=== PATIENT | male | born 1970 | race African-American/Black ===

== ENCOUNTER 2017-11-24 09:26 | Inpatient (IN) | payer OTHER ==
[2017-11-24 11:14] VITALS: BMI 30.4
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
[2017-11-24] MEDS ORDERED: guaiFENesin/D-METHORPHAN HB 10 ML UNIT-DOSE CUPS PO PRN (12:59)
[2017-11-24] MEDS ORDERED: diazePAM 5 MG TABLET PO PRN (12:59)
[2017-11-24] MEDS ORDERED: MAGNESIUM CITRATE 300 ML BOTTLE PO PRN (12:59)
[2017-11-24] MEDS ORDERED: MAGNESIUM HYDROX 2400MG/30ML ORAL SUSPENSION 30 ML CUP PO PRN (12:59)
[2017-11-24] MEDS ORDERED: IBUPROFEN 400 MG TABLET (FP) PO PRN (12:59)
[2017-11-24] MEDS ORDERED: MAG HYDROX/AL HYDROX/SIMETH 30 ML UNIT-DOSE CUP PO PRN (12:59)
[2017-11-24] MEDS ORDERED: ACETAMINOPHEN 325 MG TABLET (FP) PO PRN (12:59)
[2017-11-24] MEDS ORDERED: MENTHOL/PHENOL 1 EACH UD MM PRN (12:59)
[2017-11-24] MEDS ORDERED: P-EPHED 60MG/TRIPROLIDI 2.5MG TABLET PO PRN (12:59)
[2017-11-24] MEDS ORDERED: LOPERAMIDE HCL 2 MG CAPSULE PO PRN (12:59)
[2017-11-24] MEDS ORDERED: hydrOXYzine PAMOATE 50 MG CAPSULE (FP) PO PRN (12:59)
[2017-11-24] MEDS ORDERED: NICOTINE POLACRILEX 2 MG GUM BUC PRN (12:59)
[2017-11-24] MEDS ORDERED: cloNIDine HCL 0.1 MG TABLET PO ONE (13:40)
[2017-11-24] MEDS ORDERED: diazePAM 5 MG TABLET PO ONE (13:40)
[2017-11-24] MEDS ORDERED: METHADONE HCL 10 MG TABLET (FOR DETOX USE ONLY) PO ONE ×2 (13:43→23:00)
[2017-11-24] MEDS: GABAPENTIN 300 MG CAPSULE (FP) PO SCH ×2 (14:02→22:35)
[2017-11-24] MEDS: NICOTINE 14 MG/24 HOURS TOPICAL PATCH TD SCH (14:03)
--- NOTE | 2017-11-24 14:47 | CONSULT ---
[facility] Psychiatric Consult - Data Date of interview: 11/24/17 Admission source: [facility] Identifying data: Pt. is a 47 year old male, , father of seven, and employed by the [employer]. This is one of multiple admissions for patient. Pt. admitted to for opiate, benzodiazepine, and alcohol dependence. Substance Abuse History: Following information confirmed by Mr. Gerardo: Smoking Cessation. Smoking history: Current every day smoker. Have you smoked in the past 12 months: Yes. Aproximately how many cigarettes per day: 7. Hx Chewing Tobacco Use: No. Initiated information on smoking cessation: Yes. 'Breaking Loose' booklet given: 11/24/17. - Substance & Tx. History. Hx Alcohol Use: Yes (BEER). Hx Substance Use: Yes (HEROIN/XANAX). Substance Use Type: Alcohol , Heroin, Tranquilizers. Hx Substance Use Treatment: Yes (LAST TX AT [facility] IN 2016--). - Substances Abused. Heroin. Route: Inhalation. Frequency: Daily. Amount used: 15 bags. Age of first use: 40. Date of Last Use: . Xanax. Route: Oral. Frequency: Daily. Amount used: 3 mg. Age of first use: 41. Date of Last Use: 11/23/17. Alcohol-beer. Route: Oral. Frequency: Daily. Amount used: 1 1/2-6 pks. Age of first use: 42. Date of Last Use: 11/23/17 Medical History: Hypertension, Diabetes Psychiatric History: Patient's first encounter with a psychiatrist was in 2000. Pt. reports seeing an outpatient psychiatrist from [id number] and was diagnosed with schizoaffective disorder, MDD, and anxiety. Pt. reports approximately seven psychiatric hospitalizations with the most recent hospitalization occuring at [place] [facility] in 2015. Pt. has also been hospitalized at [facility] and [facility]. Reports taking seroquel 100mg PO BID and trazodone 100mg qhs but has not taken medications in two months. Pt. requesting to restart seroquel. Pt. denies h/o suicide attempt. Pt. denies suicidal and homicidal ideation. Physical/Sexual Abuse/Trauma History: Denies. Additional Comment: Urine Drug Screen Results: OPI-Opiates, BZO-Benzodiazepines , MTD-Methadone, OXY-Oxycodone Mental Status Exam - Mental Status Exam Alert and Oriented to: Time, Place, Person Cognitive Function: Good Patient Appearance: Well Groomed Mood: Euthymic Affect: Mood Congruent Patient Behavior: Cooperative Speech Pattern: Appropriate Voice Loudness: Moderately Soft/Quiet Thought Process: Goal Oriented Thought Disorder: Not Present Hallucinations: Denies Suicidal Ideation: Denies Homicidal Ideation: Denies Insight/Judgement: Poor Sleep: Poorly Appetite: Fair Muscle strength/Tone: Normal Gait/Station: Normal Psychiatric Findings - Problem List ([place] 1, 2,3) (1) Alcohol dependence with uncomplicated withdrawal Current Visit: Yes Status: Acute (2) Nicotine dependence Current Visit: Yes Status: Chronic Qualifiers: Nicotine product type: cigarettes Substance use status: in withdrawal Qualified Code(s): F17.213 - Nicotine dependence, cigarettes, with withdrawal (3) Opioid dependence Current Visit: Yes Status: Acute (4) Opioid dependence with withdrawal Current Visit: Yes Status: Acute (5) Schizoaffective disorder Current Visit: Yes Status: Chronic Comment: Self reports. (6) Sedative hypnotic or anxiolytic dependence Current Visit: Yes Status: Acute - Initial Treatment Plan Initial Treatment Plan: Psychoeducation provided. Detoxification in progress. Seroquel 50mg BID ordered (will titrate to Seroquel 100mg bid if current medication regime is tolerated well). Benefits and side effects discussed. Verbal Consent given. Will continue to monitor.
[2017-11-24 16:49] LABS: HEMATOCRIT 42.3 % (35.4-49); HEMOGLOBIN 13.8 GM/dL (11.7-16.9); MCH 28.8 pg (25.7-33.7); MCHC 32.7 g/dl (32.0-35.9); MEAN CELL VOLUME 88.2 fl (80-96); MEAN PLT VOLUME 9.3 fl (7.5-11.1); PLATELET COUNT 240 K/MM3 (134-434); RDW 12.7 % (11.9-15.9); WHITE BLOOD COUNT 6.7 K/mm3 (4.0-10.0)
[2017-11-24 16:58] LABS: URINE APPEARANCE CLOUDY; URINE BILIRUBIN NEGATIVE (NEGATIVE); URINE BLOOD NEGATIVE (NEGATIVE); URINE COLOR AMBER; URINE GLUCOSE (UA) NEGATIVE (NEGATIVE); URINE KETONE TRACE (NEGATIVE); URINE LEUK ESTERASE NEGATIVE (NEGATIVE); URINE NITRITE NEGATIVE (NEGATIVE); URINE UROBILINOGEN NEGATIVE mg/dL (0.2-1.0)
[2017-11-24 17:02] LABS: URINE PROTEIN 1+ (NEGATIVE)
[2017-11-24 17:05] LABS: EPI CELLS RARE /HPF (FEW); URINE MUCUS MANY
--- NOTE | 2017-11-24 17:30 | EKG ---
Test Reason : Blood Pressure : / mmHG Vent. Rate : 053 BPM Atrial Rate : 053 BPM P-R Int : 210 ms QRS Dur : 104 ms QT Int : 438 ms P-R-T Axes : 029 037 020 degrees QTc Int : 410 ms SINUS BRADYCARDIA WITH 1ST DEGREE A-V BLOCK MINIMAL VOLTAGE CRITERIA FOR LVH, MAY BE NORMAL VARIANT BORDERLINE ECG NO PREVIOUS ECGS AVAILABLE Confirmed by Tomy Kelley ([id number]) on 11/24/2017 5:30:37 PM Referred By: Confirmed By:Tomy Kelley
[2017-11-24 17:47] LABS: ALBUMIN 3.8 g/dl (3.4-5.0); ANION GAP 7 (8-16); CALCIUM 8.8 mg/dL (8.5-10.1); CHLORIDE 106 mmol/L (98-107); CO2 26 mmol/L (21-32); GLUCOSE,RANDOM 86 mg/dL (74-106); POTASSIUM 4.2 mmol/L (3.5-5.1); SODIUM 139 mmol/L (136-145)
[2017-11-24 18:47] LABS: BILIRUBIN,TOTAL 0.7 mg/dL (0.2-1.0); CREATININE 0.8 mg/dL (0.7-1.3); TOT PROT 7.2 g/dl (6.4-8.2)
[2017-11-24 18:48] LABS: ALK PHOS 94 U/L (45-117); SGOT/AST 10 U/L (15-37); SGPT/ALT 23 U/L (12-78)
[2017-11-24 20:06] LABS: BLOOD UREA NITROGEN 12 mg/dL (7-18)
[2017-11-24] MEDS ORDERED: PATIENT'S OWN MEDICATION (NON-FORMULARY) (Clonidine Hcl [Catapres] 0.2 MG) PO SCH (22:00)
[2017-11-24] MEDS: diazePAM 5 MG TABLET PO SCH (22:35)
[2017-11-24] MEDS: QUEtiapine FUMARATE 50 MG TABLET PO SCH (22:35)
[2017-11-24] MEDS: THIAMINE HCL 100 MG TABLET (FP) PO SCH (22:35)
[2017-11-24] MEDS: cloNIDine HCL 0.1 MG TABLET PO SCH (22:35)
[2017-11-24] MEDS: TOLNAFTATE 1% CREAM 15 GM TUBE TP SCH (22:38)
[2017-11-25] MEDS: GABAPENTIN 300 MG CAPSULE (FP) PO SCH ×3 (06:19→23:01)
[2017-11-25] MEDS: diazePAM 5 MG TABLET PO SCH ×3 (06:19→23:00)
[2017-11-25] MEDS ORDERED: METHADONE HCL 10 MG TABLET (FOR DETOX USE ONLY) PO SCH (10:00)
[2017-11-25] MEDS: QUEtiapine FUMARATE 50 MG TABLET PO SCH (11:03)
[2017-11-25] MEDS: NICOTINE 14 MG/24 HOURS TOPICAL PATCH TD SCH (11:03)
[2017-11-25] MEDS: cloNIDine HCL 0.1 MG TABLET PO SCH ×2 (11:03→23:00)
[2017-11-25] MEDS: TOLNAFTATE 1% CREAM 15 GM TUBE TP SCH ×2 (11:03→23:01)
[2017-11-25] MEDS: PRENATAL VITAMINS W/ FOLIC ACID TABLET (FP) PO SCH (11:03)
--- NOTE | 2017-11-25 11:32 | PN ---
[facility] CIWA - CIWA Score Nausea/Vomitin Muscle Tremors: 3 Anxiety: 3 Agitation: 2 Paroxysmal Sweats: 1-Minimal Palms Moist Orientation: 0-Oriented Tacttile Disturbances: 1-Very Mild Itch/Numbness Auditory Disturbances: 1-Very Mild Visual Disturbances: 0-None Headache: 2-Mild CIWA-Ar Total Score: 16 [facility] COWS - Scale Resting Pulse: 0= [place] 80 or Below Sweatin= Chills/Flushing Restless Observation: 3= Extraneous Movement Pupil Size: 1= Pupils >than Normal Bone or Joint Aches: 2= Severe Diffuse Aches Runny Nose/ Eye Tearin= Runny Nose/Eyes GI Upset > 30mins: 2= Nausea/Diarrhea Tremor Observation of Outstretched Hands: 2= Slight Tremor Visible Yawning Observation: 1= 1-2x During Session Anxiety or Irritability: 2=Irritable/Anxious Goose Flesh Skin: 0=Smooth Skin COWS Score: 16 [facility] Progress Note (SOAP) Subjective: ALERT,IRRITABLE,ANXIOUS,INTERRUPTED SLEEP,TREMOR,PAIN IN THE BODY AND BACK Objective: 11/25/17 11:29 Vital Signs Temperature 98.1 F 11/25/17 10:00 Pulse Rate 60 11/25/17 10:00 Respiratory Rate 20 11/25/17 10:00 Blood Pressure 142/77 11/25/17 10:00 O2 Sat by Pulse Oximetry (%) EKG 11/25/17 11:33 EKG SINUS BRADYCARDIA 1SE DEGREE AV BLOCK LVH NO CHEST PAIN,NO SOB,NO DIZZINESS REPEAT EKG PENDING Laboratory Last Values WBC 6.7 K/mm3 (4.0-10.0) 11/24/17 13:00 RBC 4.80 M/mm3 (4.00-5.60) 11/24/17 13:00 Hgb 13.8 GM/dL (11.7-16.9) 11/24/17 13:00 Hct 42.3 % (35.4-49) 11/24/17 13:00 MCV 88.2 fl (80-96) 11/24/17 13:00 MCH 28.8 pg (25.7-33.7) 11/24/17 13:00 MCHC 32.7 g/dl (32.0-35.9) 11/24/17 13:00 RDW 12.7 % (11.9-15.9) 11/24/17 13:00 Plt Count 240 K/MM3 (134-434) 11/24/17 13:00 MPV 9.3 fl (7.5-11.1) 11/24/17 13:00 Sodium 139 mmol/L (136-145) 11/24/17 13:00 Potassium 4.2 mmol/L (3.5-5.1) 11/24/17 13:00 Chloride 106 mmol/L (98-107) 11/24/17 13:00 Carbon Dioxide 26 mmol/L (21-32) 11/24/17 13:00 Anion Gap 7 (8-16) L 11/24/17 13:00 BUN 12 mg/dL (7-18) 11/24/17 13:00 Creatinine 0.8 mg/dL (0.7-1.3) 11/24/17 13:00 Creat Clearance w eGFR > 60 (>60) 11/24/17 13:00 POC Glucometer 83 UNITS (80-120) 11/25/17 06:19 Random Glucose 86 mg/dL (74-106) 11/24/17 13:00 Calcium 8.8 mg/dL (8.5-10.1) 11/24/17 13:00 Total Bilirubin 0.7 mg/dL (0.2-1.0) 11/24/17 13:00 AST 10 U/L (15-37) L D 11/24/17 13:00 ALT 23 U/L (12-78) 11/24/17 13:00 Alkaline Phosphatase 94 U/L (45-117) 11/24/17 13:00 Total Protein 7.2 g/dl (6.4-8.2) 11/24/17 13:00 Albumin 3.8 g/dl (3.4-5.0) 11/24/17 13:00 Urine Color Jign[place] 11/24/17 15:00 Urine Appearance Cloudy 11/24/17 15:00 Urine pH 5.0 (5.0-8.0) 11/24/17 15:00 Ur Specific [place] 1.030 (1.001-1.035) 11/24/17 15:00 Urine Protein 1+ (NEGATIVE) H 11/24/17 15:00 Urine Glucose (UA) Negative (NEGATIVE) 11/24/17 15:00 Urine Ketones Trace (NEGATIVE) H 11/24/17 15:00 Urine Blood Negative (NEGATIVE) 11/24/17 15:00 Urine Nitrite Negative (NEGATIVE) 11/24/17 15:00 Urine Bilirubin Negative (NEGATIVE) 11/24/17 15:00 Urine Urobilinogen Negative mg/dL (0.2-1.0) 11/24/17 15:00 Ur Leukocyte Esterase Negative (NEGATIVE) 11/24/17 15:00 Urine WBC (Auto) 1 /hpf (3-5) 11/24/17 15:00 Urine RBC (Auto) 2 /hpf (0-3) 11/24/17 15:00 Ur Epithelial Cells Rare /HPF (FEW) 11/24/17 15:00 Urine Mucus Many 11/24/17 15:00 11/25/17 11:35 LABS PENDING Assessment: 11/25/17 11:35 WITHDRAWAL SYMPTOM Plan: CONTINUE DETOX
--- NOTE | 2017-11-25 15:59 | PN ---
[facility] Progress Note Note: Psychiatric Nurse Practitioner: Pt. able to tolerate seroquel 50mg BID. No complaints of dizziness or oversedation. Pt. agreeable to increasing seroquel to 100mg BID which was discussed during initial psychiatric consultation. Benefits and side effects discussed. Verbal consent given. Will continue to monitor.
[2017-11-25] MEDS: QUEtiapine FUMARATE 100 MG TABLET (FP) PO SCH (23:01)
[2017-11-25] MEDS: THIAMINE HCL 100 MG TABLET (FP) PO SCH (23:01)
[2017-11-26] MEDS: GABAPENTIN 300 MG CAPSULE (FP) PO SCH ×4 (06:09→22:27)
[2017-11-26] MEDS: METHADONE HCL 5 MG TABLET (FOR DETOX USE ONLY) PO SCH (10:38)
[2017-11-26] MEDS: cloNIDine HCL 0.1 MG TABLET PO SCH ×3 (10:39→22:30)
[2017-11-26] MEDS: NICOTINE 14 MG/24 HOURS TOPICAL PATCH TD SCH (10:39)
[2017-11-26] MEDS: TOLNAFTATE 1% CREAM 15 GM TUBE TP SCH ×2 (10:39→22:30)
[2017-11-26] MEDS: QUEtiapine FUMARATE 100 MG TABLET (FP) PO SCH ×2 (10:39→22:27)
[2017-11-26] MEDS: diazePAM 5 MG TABLET PO SCH ×2 (10:39→22:27)
[2017-11-26] MEDS: PRENATAL VITAMINS W/ FOLIC ACID TABLET (FP) PO SCH (10:39)
--- NOTE | 2017-11-26 11:35 | PN ---
[facility] CIWA - CIWA Score Nausea/Vomitin Muscle Tremors: 3 Anxiety: 3 Agitation: 3 Paroxysmal Sweats: 1-Minimal Palms Moist Orientation: 0-Oriented Tacttile Disturbances: 1-Very Mild Itch/Numbness Auditory Disturbances: 1-Very Mild Visual Disturbances: 0-None Headache: 2-Mild CIWA-Ar Total Score: 17 [facility] COWS - Scale Resting Pulse: 0= [place] 80 or Below Sweatin= Chills/Flushing Restless Observation: 3= Extraneous Movement Pupil Size: 1= Pupils >than Normal Bone or Joint Aches: 2= Severe Diffuse Aches Runny Nose/ Eye Tearin= Runny Nose/Eyes GI Upset > 30mins: 3= Vomiting/Diarrhea Tremor Observation of Outstretched Hands: 2= Slight Tremor Visible Yawning Observation: 1= 1-2x During Session Anxiety or Irritability: 2=Irritable/Anxious Goose Flesh Skin: 0=Smooth Skin COWS Score: 17 [facility] Progress Note (SOAP) Subjective: ALERT,IRRITABLE,ANXIOUS,INTERRUPTED SLEEP,PAIN IN THE BODY AND BACK Objective: 11/26/17 11:34 Vital Signs Temperature 98.2 F 11/26/17 10:11 Pulse Rate 62 11/26/17 10:11 Respiratory Rate 16 11/26/17 10:11 Blood Pressure 121/70 11/26/17 10:11 O2 Sat by Pulse Oximetry (%) Assessment: 11/26/17 11:34 WITHDRAWAL SYMPTOM Plan: CONTINUE DETOX
--- NOTE | 2017-11-26 12:16 | EKG ---
Test Reason : Blood Pressure : / mmHG Vent. Rate : 059 BPM Atrial Rate : 059 BPM P-R Int : 218 ms QRS Dur : 098 ms QT Int : 414 ms P-R-T Axes : 037 011 -03 degrees QTc Int : 409 ms SINUS BRADYCARDIA WITH 1ST DEGREE A-V BLOCK OTHERWISE NORMAL ECG WHEN COMPARED WITH ECG OF 24-NOV-2017 14:15, NO SIGNIFICANT CHANGE WAS FOUND Confirmed by BHASKAR BARRAZA, CALLI ([id number]) on 11/26/2017 12:16:07 PM Referred By: Confirmed By:CALLI MURO MD
[2017-11-26] MEDS: MINERAL OIL/PETROLAT/WATER TOPICAL CREAM 113 GM JAR TP SCH ×2 (12:30→22:30)
[2017-11-26] MEDS: THIAMINE HCL 100 MG TABLET (FP) PO SCH ×2 (22:26→23:05)
[2017-11-27] MEDS: GABAPENTIN 300 MG CAPSULE (FP) PO SCH ×3 (05:37→22:15)
[2017-11-27] MEDS: MINERAL OIL/PETROLAT/WATER TOPICAL CREAM 113 GM JAR TP SCH ×2 (10:50→22:38)
[2017-11-27] MEDS: TOLNAFTATE 1% CREAM 15 GM TUBE TP SCH ×2 (10:50→22:38)
[2017-11-27] MEDS: QUEtiapine FUMARATE 100 MG TABLET (FP) PO SCH ×2 (10:50→22:15)
[2017-11-27] MEDS: cloNIDine HCL 0.1 MG TABLET PO SCH ×2 (10:55→22:38)
[2017-11-27] MEDS: diazePAM 5 MG TABLET PO SCH ×2 (10:56→22:14)
[2017-11-27] MEDS: NICOTINE 14 MG/24 HOURS TOPICAL PATCH TD SCH (10:56)
[2017-11-27] MEDS: PRENATAL VITAMINS W/ FOLIC ACID TABLET (FP) PO SCH (10:56)
[2017-11-27] MEDS: METHADONE HCL 5 MG TABLET (FOR DETOX USE ONLY) PO SCH (10:56)
--- NOTE | 2017-11-27 11:53 | PN ---
[facility] Progress Note (SOAP) Subjective: ALERT,IRRITABLE,ANXIOUS,INTERRUPTED SLEEP,TREMOR Objective: 11/27/17 11:52 Vital Signs Temperature 97.9 F 11/27/17 11:37 Pulse Rate 63 11/27/17 11:37 Respiratory Rate 18 11/27/17 11:37 Blood Pressure 135/66 11/27/17 11:37 O2 Sat by Pulse Oximetry (%) [facility] 92 Assessment: 11/27/17 11:52 WITHDRAWAL SYMPTOM Plan: CONTINUE DETOX
[2017-11-27] MEDS: THIAMINE HCL 100 MG TABLET (FP) PO SCH (22:14)
[2017-11-28] MEDS: GABAPENTIN 300 MG CAPSULE (FP) PO SCH ×3 (06:20→22:23)
[2017-11-28] MEDS ORDERED: diazePAM 5 MG TABLET PO SCH (10:00)
[2017-11-28] MEDS ORDERED: METHADONE HCL 10 MG TABLET (FOR DETOX USE ONLY) PO SCH (10:00)
[2017-11-28] MEDS: MINERAL OIL/PETROLAT/WATER TOPICAL CREAM 113 GM JAR TP SCH ×2 (10:50→22:24)
[2017-11-28] MEDS: PRENATAL VITAMINS W/ FOLIC ACID TABLET (FP) PO SCH (11:12)
[2017-11-28] MEDS: cloNIDine HCL 0.1 MG TABLET PO SCH ×2 (11:12→22:23)
[2017-11-28] MEDS: NICOTINE 14 MG/24 HOURS TOPICAL PATCH TD SCH (11:13)
[2017-11-28] MEDS: QUEtiapine FUMARATE 100 MG TABLET (FP) PO SCH ×2 (11:13→22:23)
[2017-11-28] MEDS: TOLNAFTATE 1% CREAM 15 GM TUBE TP SCH ×2 (11:15→22:24)
--- NOTE | 2017-11-28 14:13 | PN ---
[facility] Progress Note (SOAP) Subjective: shakes anxious Objective: 11/28/17 14:12 sitting in day room slight tremors with arms extended no acute distress Vital Signs Temperature 98.4 F 11/28/17 10:00 Pulse Rate 64 11/28/17 10:00 Respiratory Rate 20 11/28/17 10:00 Blood Pressure 128/66 11/28/17 10:00 O2 Sat by Pulse Oximetry (%) Assessment: 11/28/17 14:13 withdrawal sx Plan: continue detox d/c tomorrow
[2017-11-28] MEDS: THIAMINE HCL 100 MG TABLET (FP) PO SCH (22:23)
[2017-11-29] MEDS: GABAPENTIN 300 MG CAPSULE (FP) PO SCH (05:51)
[2017-11-29] MEDS ORDERED: METHADONE HCL 5 MG TABLET (FOR DETOX USE ONLY) PO SCH (06:00)
--- NOTE | 2017-11-29 08:56 | DS ---
[facility] Detox Discharge Summary Admission Date: 11/24/17 Discharge Date: 11/29/17 - History Present History: Alcohol Dependence, Opioid Dependence - Physical Exam Results Vital Signs: Vital Signs Temperature 97.9 F 11/29/17 06:00 Pulse Rate 53 L 11/29/17 06:00 Respiratory Rate 18 11/29/17 06:00 Blood Pressure 122/72 11/29/17 06:00 O2 Sat by Pulse Oximetry (%) Pertinent Admission Physical Exam Findings: withdrawal sx Vital Signs Temperature 97.9 F 11/29/17 06:00 Pulse Rate 53 L 11/29/17 06:00 Respiratory Rate 18 11/29/17 06:00 Blood Pressure 122/72 11/29/17 06:00 O2 Sat by Pulse Oximetry (%) Laboratory Last Values WBC 6.7 K/mm3 (4.0-10.0) 11/24/17 13:00 RBC 4.80 M/mm3 (4.00-5.60) 11/24/17 13:00 Hgb 13.8 GM/dL (11.7-16.9) 11/24/17 13:00 Hct 42.3 % (35.4-49) 11/24/17 13:00 MCV 88.2 fl (80-96) 11/24/17 13:00 MCH 28.8 pg (25.7-33.7) 11/24/17 13:00 MCHC 32.7 g/dl (32.0-35.9) 11/24/17 13:00 RDW 12.7 % (11.9-15.9) 11/24/17 13:00 Plt Count 240 K/MM3 (134-434) 11/24/17 13:00 MPV 9.3 fl (7.5-11.1) 11/24/17 13:00 Sodium 139 mmol/L (136-145) 11/24/17 13:00 Potassium 4.2 mmol/L (3.5-5.1) 11/24/17 13:00 Chloride 106 mmol/L (98-107) 11/24/17 13:00 Carbon Dioxide 26 mmol/L (21-32) 11/24/17 13:00 Anion Gap 7 (8-16) L 11/24/17 13:00 BUN 12 mg/dL (7-18) 11/24/17 13:00 Creatinine 0.8 mg/dL (0.7-1.3) 11/24/17 13:00 Creat Clearance w eGFR > 60 (>60) 11/24/17 13:00 POC Glucometer 87 UNITS (80-120) 11/29/17 05:54 Random Glucose 86 mg/dL (74-106) 11/24/17 13:00 Calcium 8.8 mg/dL (8.5-10.1) 11/24/17 13:00 Total Bilirubin 0.7 mg/dL (0.2-1.0) 11/24/17 13:00 AST 10 U/L (15-37) L D 11/24/17 13:00 ALT 23 U/L (12-78) 11/24/17 13:00 Alkaline Phosphatase 94 U/L (45-117) 11/24/17 13:00 Total Protein 7.2 g/dl (6.4-8.2) 11/24/17 13:00 Albumin 3.8 g/dl (3.4-5.0) 11/24/17 13:00 Urine Color Jigna 11/24/17 15:00 Urine Appearance Cloudy 11/24/17 15:00 Urine pH 5.0 (5.0-8.0) 11/24/17 15:00 Ur Specific [place] 1.030 (1.001-1.035) 11/24/17 15:00 Urine Protein 1+ (NEGATIVE) H 11/24/17 15:00 Urine Glucose (UA) Negative (NEGATIVE) 11/24/17 15:00 Urine Ketones Trace (NEGATIVE) H 11/24/17 15:00 Urine Blood Negative (NEGATIVE) 11/24/17 15:00 Urine Nitrite Negative (NEGATIVE) 11/24/17 15:00 Urine Bilirubin Negative (NEGATIVE) 11/24/17 15:00 Urine Urobilinogen Negative mg/dL (0.2-1.0) 11/24/17 15:00 Ur Leukocyte Esterase Negative (NEGATIVE) 11/24/17 15:00 Urine WBC (Auto) 1 /hpf (3-5) 11/24/17 15:00 Urine RBC (Auto) 2 /hpf (0-3) 11/24/17 15:00 Ur Epithelial Cells Rare /HPF (FEW) 11/24/17 15:00 Urine Mucus Many 11/24/17 15:00 RPR Titer Nonreactive (NONREACTIVE) 11/24/17 13:00 lab noted - Treatment Hospital Course: Detox Protocol Followed, Detoxed Safely, Responded well, Discharged Condition Good, Rehab Referral Accepted Patient has Accepted a Rehab Referral to: as per counselor arranged - Medication Discharge Medications: Ambulatory Orders Clonidine HCl [Catapres] 0.2 mg PO BID 11/24/17 Trazodone HCl 50 mg PO HS 11/24/17 Quetiapine Fumarate [Seroquel] 100 tab PO BID #60 tablet 11/27/17 Gabapentin [Neurontin -] 300 mg PO TID #42 capsule 11/29/17 - Diagnosis (1) Alcohol dependence with uncomplicated withdrawal Current Visit: Yes Status: Acute (2) Opioid dependence with withdrawal Current Visit: Yes Status: Acute - AMA Did Patient Leave Against Medical Advice: No
[2017-11-29 10:05] VITALS: BP 110/61; PULSE 68; TEMP 98.2
== END 2017-11-29 08:53 | disposition home or self-care (01) | DRG 773 ==
LOC: YASAS 09:26 → Y6N 12:44
PROVIDERS: ADMIT Internal Medicine; ATTEND Internal Medicine
PROC: HZ2ZZZZ Detoxification Services for Substance Abuse Treatment (ICD-10-PCS; principal; 2017-11-24)
DX: F11.23 Opioid dependence with withdrawal (principal); F10.230 Alcohol dependence with withdrawal, uncomplicated; F13.230 Sedative, hypnotic or anxiolytic dependence with withdrawal, uncomplicated; F17.213 Nicotine dependence, cigarettes, with withdrawal; F25.9 Schizoaffective disorder, unspecified; I44.0 Atrioventricular block, first degree; I25.2 Old myocardial infarction; I15.9 Secondary hypertension, unspecified; E11.9 Type 2 diabetes mellitus without complications; R00.1 Bradycardia, unspecified; G47.00 Insomnia, unspecified; Z91.013 Allergy to seafood; Z91.018 Allergy to other foods; Z88.0 Allergy status to penicillin
CPT/HCPCS: 36415; 71046-TC-FY; 80053; 81003; 81015; 82962; 85027; 86593; 93005; 93010; J0735

== ENCOUNTER 2018-01-23 11:37 | Inpatient (IN) | payer OTHER ==
[2018-01-23 12:52] VITALS: BMI 30.4
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
[2018-01-23] MEDS ORDERED: IBUPROFEN 400 MG TABLET (FP) PO PRN (13:26)
[2018-01-23] MEDS ORDERED: hydrOXYzine PAMOATE 25 MG CAPSULE (FP) PO PRN (13:26)
[2018-01-23] MEDS ORDERED: ACETAMINOPHEN 325 MG TABLET (FP) PO PRN (13:26)
[2018-01-23] MEDS ORDERED: LOPERAMIDE HCL 2 MG CAPSULE PO PRN (13:26)
[2018-01-23] MEDS ORDERED: chlordiazePOXIDE HCL 25 MG CAPSULE PO PRN (13:26)
[2018-01-23] MEDS ORDERED: guaiFENesin/D-METHORPHAN HB 10 ML UNIT-DOSE CUPS PO PRN (13:26)
[2018-01-23] MEDS ORDERED: MAGNESIUM CITRATE 300 ML BOTTLE PO PRN (13:26)
[2018-01-23] MEDS ORDERED: MAGNESIUM HYDROX 2400MG/30ML ORAL SUSPENSION 30 ML CUP PO PRN (13:26)
[2018-01-23] MEDS ORDERED: P-EPHED 60MG/TRIPROLIDI 2.5MG TABLET PO PRN (13:26)
[2018-01-23] MEDS ORDERED: MAG HYDROX/AL HYDROX/SIMETH 30 ML UNIT-DOSE CUP PO PRN (14:29)
[2018-01-23] MEDS ORDERED: METHADONE HCL 10 MG TABLET (FOR DETOX USE ONLY) PO ONE ×2 (14:30→23:00)
[2018-01-23] MEDS ORDERED: chlordiazePOXIDE HCL 25 MG CAPSULE PO ONE (14:30)
[2018-01-23] MEDS ORDERED: MENTHOL/PHENOL 1 EACH UD MM PRN (14:30)
[2018-01-23] MEDS ORDERED: NICOTINE POLACRILEX 4 MG GUM BUC PRN (14:35)
[2018-01-23] MEDS: CHLORHEXIDINE GLUCONATE 0.12% 15ML CUP MM SCH ×2 (15:57→22:38)
[2018-01-23 17:38] LABS: URINE APPEARANCE CLEAR; URINE BILIRUBIN NEGATIVE (<2.0 mg/dL); URINE BLOOD NEGATIVE (NEGATIVE); URINE COLOR LTYELLOW; URINE GLUCOSE (UA) NEGATIVE (NEGATIVE); URINE KETONE NEGATIVE (NEGATIVE); URINE LEUK ESTERASE NEGATIVE (NEGATIVE); URINE NITRITE NEGATIVE (NEGATIVE); URINE PROTEIN NEGATIVE (NEGATIVE); URINE UROBILINOGEN NEGATIVE mg/dL (0.2-1.0)
[2018-01-23] MEDS: chlordiazePOXIDE HCL 25 MG CAPSULE PO SCH ×2 (18:08→22:36)
[2018-01-23] MEDS ORDERED: MELATONIN 5 MG TABLETS PO PRN (22:00)
[2018-01-23] MEDS: THIAMINE HCL 100 MG TABLET (FP) PO SCH (22:36)
[2018-01-24] MEDS: chlordiazePOXIDE HCL 25 MG CAPSULE PO SCH ×4 (06:54→22:51)
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
[2018-01-24] MEDS ORDERED: METHADONE HCL 10 MG TABLET (FOR DETOX USE ONLY) PO SCH (10:00)
[2018-01-24 10:01] LABS: ALBUMIN 3.4 g/dl (3.4-5.0); ALK PHOS 97 U/L (45-117); ANION GAP 6 (8-16); BILIRUBIN,TOTAL 1.2 mg/dL (0.2-1.0); BLOOD UREA NITROGEN 12 mg/dL (7-18); CALCIUM 8.7 mg/dL (8.5-10.1); CHLORIDE 107 mmol/L (98-107); CO2 27 mmol/L (21-32); CREATININE 0.8 mg/dL (0.7-1.3); GLUCOSE,RANDOM 86 mg/dL (74-106); HEMATOCRIT 39.4 % (35.4-49); HEMOGLOBIN 12.9 GM/dL (11.7-16.9); MCHC 32.7 g/dl (32.0-35.9); MEAN CELL VOLUME 88.6 fl (80-96); MEAN PLT VOLUME 9.1 fl (7.5-11.1); PLATELET COUNT 219 K/MM3 (134-434); POTASSIUM 4.1 mmol/L (3.5-5.1); RBC 4.45 M/mm3 (4.00-5.60); RDW 13.1 % (11.9-15.9); SGOT/AST 16 U/L (15-37); SGPT/ALT 20 U/L (12-78); SODIUM 140 mmol/L (136-145); TOT PROT 6.5 g/dl (6.4-8.2); WHITE BLOOD COUNT 5.8 K/mm3 (4.0-10.0)
[2018-01-24] MEDS: PRENATAL VITAMINS W/ FOLIC ACID TABLET (FP) PO SCH (10:34)
[2018-01-24] MEDS: CHLORHEXIDINE GLUCONATE 0.12% 15ML CUP MM SCH ×2 (10:35→22:51)
--- NOTE | 2018-01-24 14:46 | EKG ---
Test Reason : Blood Pressure : / mmHG Vent. Rate : 072 BPM Atrial Rate : 072 BPM P-R Int : 214 ms QRS Dur : 104 ms QT Int : 398 ms P-R-T Axes : 055 019 015 degrees QTc Int : 435 ms SINUS RHYTHM WITH 1ST DEGREE A-V BLOCK POSSIBLE LEFT ATRIAL ENLARGEMENT BORDERLINE ECG WHEN COMPARED WITH ECG OF 25-NOV-2017 11:38, NO SIGNIFICANT CHANGE WAS FOUND Confirmed by KARLA BARRAZA, LIDIA ([id number]) on 01/24/2018 2:46:00 PM Referred By: Confirmed By:LIDIA ACOSTA MD
--- NOTE | 2018-01-24 16:05 | PN ---
S CIWA - CIWA Score Nausea/Vomitin Muscle Tremors: 4-Moderate,w/Arms Extend Anxiety: 4-Mod. Anxious/Guarded Agitation: 4-Moderately Restless Paroxysmal Sweats: 3 Orientation: 0-Oriented Tacttile Disturbances: 1-Very Mild Itch/Numbness Auditory Disturbances: 0-None Visual Disturbances: 0-None Headache: 1-Very Mild CIWA-Ar Total Score: 20 BHS COWS - Scale Resting Pulse: 0= [place] 80 or Below Sweatin=Flushed/Facial Moisture Restless Observation: 3= Extraneous Movement Pupil Size: 0= Normal to Room Light Bone or Joint Aches: 2= Severe Diffuse Aches Runny Nose/ Eye Tearin= Runny Nose/Eyes GI Upset > 30mins: 2= Nausea/Diarrhea Tremor Observation of Outstretched Hands: 2= Slight Tremor Visible Yawning Observation: 1= 1-2x During Session Anxiety or Irritability: 2=Irritable/Anxious Goose Flesh Skin: 0=Smooth Skin COWS Score: 16 S Progress Note (SOAP) Subjective: Sweating, interrupted sleep Objective: 01/24/18 16:04 Last Vital Signs Temp Pulse Resp BP Pulse Ox 97.4 F L 57 L 18 106/66 01/24/18 14:33 01/24/18 14:33 01/24/18 14:33 01/24/18 14:33 Laboratory Tests 01/23/18 01/24/18 01/24/18 17:00 07:30 07:30 WBC 5.8 RBC 4.45 Hgb 12.9 Hct 39.4 MCV 88.6 MCH 29.0 MCHC 32.7 RDW 13.1 Plt Count 219 MPV 9.1 Sodium 140 Potassium 4.1 Chloride 107 Carbon Dioxide 27 Anion Gap 6 L BUN 12 Creatinine 0.8 Creat Clearance w eGFR > 60 Random Glucose 86 Calcium 8.7 Total Bilirubin 1.2 H D AST 16 D ALT 20 Alkaline Phosphatase 97 Total Protein 6.5 Albumin 3.4 Urine Color Ltyellow Urine Appearance Clear Urine pH 5.0 Ur Specific [place] 1.013 Urine Protein Negative Urine Glucose (UA) Negative Urine Ketones Negative Urine Blood Negative Urine Nitrite Negative Urine Bilirubin Negative Urine Urobilinogen Negative Ur Leukocyte Esterase Negative RPR Titer 01/24/18 07:30 WBC RBC Hgb Hct MCV MCH MCHC RDW Plt Count MPV Sodium Potassium Chloride Carbon Dioxide Anion Gap BUN Creatinine Creat Clearance w eGFR Random Glucose Calcium Total Bilirubin AST ALT Alkaline Phosphatase Total Protein Albumin Urine Color Urine Appearance Urine pH Ur Specific [place] Urine Protein Urine Glucose (UA) Urine Ketones Urine Blood Urine Nitrite Urine Bilirubin Urine Urobilinogen Ur Leukocyte Esterase RPR Titer Nonreactive Labs reviewed Assessment: 01/24/18 16:05 Withdrawal symptoms Plan: Continue detox Encouraged to drink more water for hydration
[2018-01-24] MEDS: THIAMINE HCL 100 MG TABLET (FP) PO SCH (22:51)
[2018-01-24] MEDS: QUEtiapine FUMARATE 100 MG TABLET (FP) PO SCH (22:51)
[2018-01-25] MEDS: chlordiazePOXIDE HCL 25 MG CAPSULE PO SCH ×2 (06:00→10:28)
[2018-01-25] MEDS ORDERED: METHADONE HCL 5 MG TABLET (FOR DETOX USE ONLY) PO SCH (10:00)
[2018-01-25] MEDS: PRENATAL VITAMINS W/ FOLIC ACID TABLET (FP) PO SCH (10:28)
[2018-01-25] MEDS: QUEtiapine FUMARATE 100 MG TABLET (FP) PO SCH ×2 (10:28→22:29)
[2018-01-25] MEDS: CHLORHEXIDINE GLUCONATE 0.12% 15ML CUP MM SCH ×2 (10:29→22:29)
--- NOTE | 2018-01-25 11:52 | PN ---
S CIWA - CIWA Score Nausea/Vomitin-No Nausea/No Vomiting Muscle Tremors: 4-Moderate,w/Arms Extend Anxiety: 4-Mod. Anxious/Guarded Agitation: 4-Moderately Restless Paroxysmal Sweats: 2 Orientation: 0-Oriented Tacttile Disturbances: 0-None Auditory Disturbances: 0-None Visual Disturbances: 0-None Headache: 0-None Present CIWA-Ar Total Score: 14 S COWS - Scale Resting Pulse: 0= [place] 80 or Below Sweatin= Chills/Flushing Restless Observation: 3= Extraneous Movement Pupil Size: 2= Moderately Dilated Bone or Joint Aches: 1= Mild Discomfort Runny Nose/ Eye Tearin= Nasal Congestion GI Upset > 30mins: 0= None Tremor Observation of Outstretched Hands: 2= Slight Tremor Visible Yawning Observation: 1= 1-2x During Session Anxiety or Irritability: 2=Irritable/Anxious Goose Flesh Skin: 0=Smooth Skin COWS Score: 13 S Progress Note (SOAP) Subjective: ANXIETY,SWEATS,FATIGUE. Objective: 01/25/18 11:52 Vital Signs Temperature 96.5 F L 01/25/18 09:27 Pulse Rate 51 L 01/25/18 09:27 Respiratory Rate 18 01/25/18 09:27 Blood Pressure 108/70 01/25/18 09:27 O2 Sat by Pulse Oximetry (%) Laboratory Last Values WBC 5.8 K/mm3 (4.0-10.0) 01/24/18 07:30 RBC 4.45 M/mm3 (4.00-5.60) 01/24/18 07:30 Hgb 12.9 GM/dL (11.7-16.9) 01/24/18 07:30 Hct 39.4 % (35.4-49) 01/24/18 07:30 MCV 88.6 fl (80-96) 01/24/18 07:30 MCH 29.0 pg (25.7-33.7) 01/24/18 07:30 MCHC 32.7 g/dl (32.0-35.9) 01/24/18 07:30 RDW 13.1 % (11.9-15.9) 01/24/18 07:30 Plt Count 219 K/MM3 (134-434) 01/24/18 07:30 MPV 9.1 fl (7.5-11.1) 01/24/18 07:30 Sodium 140 mmol/L (136-145) 01/24/18 07:30 Potassium 4.1 mmol/L (3.5-5.1) 01/24/18 07:30 Chloride 107 mmol/L (98-107) 01/24/18 07:30 Carbon Dioxide 27 mmol/L (21-32) 01/24/18 07:30 Anion Gap 6 (8-16) L 01/24/18 07:30 BUN 12 mg/dL (7-18) 01/24/18 07:30 Creatinine 0.8 mg/dL (0.7-1.3) 01/24/18 07:30 Creat Clearance w eGFR > 60 (>60) 01/24/18 07:30 Random Glucose 86 mg/dL (74-106) 01/24/18 07:30 Calcium 8.7 mg/dL (8.5-10.1) 01/24/18 07:30 Total Bilirubin 1.2 mg/dL (0.2-1.0) H D 01/24/18 07:30 AST 16 U/L (15-37) D 01/24/18 07:30 ALT 20 U/L (12-78) 01/24/18 07:30 Alkaline Phosphatase 97 U/L (45-117) 01/24/18 07:30 Total Protein 6.5 g/dl (6.4-8.2) 01/24/18 07:30 Albumin 3.4 g/dl (3.4-5.0) 01/24/18 07:30 Urine Color Ltyellow 01/23/18 17:00 Urine Appearance Clear 01/23/18 17:00 Urine pH 5.0 (5.0-8.0) 01/23/18 17:00 Ur Specific [place] 1.013 (1.001-1.035) 01/23/18 17:00 Urine Protein Negative (NEGATIVE) 01/23/18 17:00 Urine Glucose (UA) Negative (NEGATIVE) 01/23/18 17:00 Urine Ketones Negative (NEGATIVE) 01/23/18 17:00 Urine Blood Negative (NEGATIVE) 01/23/18 17:00 Urine Nitrite Negative (NEGATIVE) 01/23/18 17:00 Urine Bilirubin Negative (<2.0 mg/dL) 01/23/18 17:00 Urine Urobilinogen Negative mg/dL (0.2-1.0) 01/23/18 17:00 Ur Leukocyte Esterase Negative (NEGATIVE) 01/23/18 17:00 RPR Titer Nonreactive (NONREACTIVE) 01/24/18 07:30 Assessment: 01/25/18 11:52 WITHDRAWAL SX Plan: CONTINUE DETOX
[2018-01-25] MEDS: chlordiazePOXIDE 5 MG CAPSULE PO SCH (16:39)
[2018-01-25] MEDS: THIAMINE HCL 100 MG TABLET (FP) PO SCH (22:29)
[2018-01-26] MEDS: chlordiazePOXIDE 5 MG CAPSULE PO SCH ×2 (00:11→05:41)
[2018-01-26 09:53] VITALS: BP 118/75; PULSE 53; TEMP 97.1
[2018-01-26] MEDS ORDERED: METHADONE HCL 10 MG TABLET (FOR DETOX USE ONLY) PO SCH (10:00)
--- NOTE | 2018-01-26 12:19 | PN ---
[facility] Progress Note (SOAP) Subjective: PT SIGNED OUT AMA.DECLINED TO COMPLETE DETOX PLANNED. ALERT O X 3. Objective: 01/26/18 12:18 Vital Signs Temperature 97.1 F L 01/26/18 09:52 Pulse Rate 53 L 01/26/18 09:52 Respiratory Rate 18 01/26/18 09:52 Blood Pressure 118/75 04 09:52 O2 Sat by Pulse Oximetry (%) Laboratory Last Values WBC 5.8 K/mm3 (4.0-10.0) 01/24/18 07:30 RBC 4.45 M/mm3 (4.00-5.60) 01/24/18 07:30 Hgb 12.9 GM/dL (11.7-16.9) 01/24/18 07:30 Hct 39.4 % (35.4-49) 01/24/18 07:30 MCV 88.6 fl (80-96) 01/24/18 07:30 MCH 29.0 pg (25.7-33.7) 01/24/18 07:30 MCHC 32.7 g/dl (32.0-35.9) 01/24/18 07:30 RDW 13.1 % (11.9-15.9) 01/24/18 07:30 Plt Count 219 K/MM3 (134-434) 01/24/18 07:30 MPV 9.1 fl (7.5-11.1) 01/24/18 07:30 Sodium 140 mmol/L (136-145) 01/24/18 07:30 Potassium 4.1 mmol/L (3.5-5.1) 01/24/18 07:30 Chloride 107 mmol/L (98-107) 01/24/18 07:30 Carbon Dioxide 27 mmol/L (21-32) 01/24/18 07:30 Anion Gap 6 (8-16) L 01/24/18 07:30 BUN 12 mg/dL (7-18) 01/24/18 07:30 Creatinine 0.8 mg/dL (0.7-1.3) 01/24/18 07:30 Creat Clearance w eGFR > 60 (>60) 01/24/18 07:30 Random Glucose 86 mg/dL (74-106) 01/24/18 07:30 Calcium 8.7 mg/dL (8.5-10.1) 01/24/18 07:30 Total Bilirubin 1.2 mg/dL (0.2-1.0) H D 01/24/18 07:30 AST 16 U/L (15-37) D 01/24/18 07:30 ALT 20 U/L (12-78) 01/24/18 07:30 Alkaline Phosphatase 97 U/L (45-117) 01/24/18 07:30 Total Protein 6.5 g/dl (6.4-8.2) 01/24/18 07:30 Albumin 3.4 g/dl (3.4-5.0) 01/24/18 07:30 Urine Color Ltyellow 01/23/18 17:00 Urine Appearance Clear 01/23/18 17:00 Urine pH 5.0 (5.0-8.0) 01/23/18 17:00 Ur Specific [place] 1.013 (1.001-1.035) 01/23/18 17:00 Urine Protein Negative (NEGATIVE) 01/23/18 17:00 Urine Glucose (UA) Negative (NEGATIVE) 01/23/18 17:00 Urine Ketones Negative (NEGATIVE) 01/23/18 17:00 Urine Blood Negative (NEGATIVE) 01/23/18 17:00 Urine Nitrite Negative (NEGATIVE) 01/23/18 17:00 Urine Bilirubin Negative (<2.0 mg/dL) 01/23/18 17:00 Urine Urobilinogen Negative mg/dL (0.2-1.0) 01/23/18 17:00 Ur Leukocyte Esterase Negative (NEGATIVE) 01/23/18 17:00 RPR Titer Nonreactive (NONREACTIVE) 01/24/18 07:30 Assessment: 01/26/18 12:18 NAD Plan: PT SIGNED OUT AMA
--- NOTE | 2018-01-26 12:22 | DS ---
[facility] Detox Discharge Summary Admission Date: 01/23/18 Discharge Date: 01/26/18 - History Present History: Alcohol Dependence, Opioid Dependence Additional Comments: PT DECLINED TO COMPLETE DETOX. DECIDED TO SIGN OUT AMA TODAY. ALERT O X3. NAD. Pertinent Past History: PLEASE SEE DX BELOW - Physical Exam Results Vital Signs: Vital Signs Temperature 97.1 F L 01/26/18 09:52 Pulse Rate 53 L 01/26/18 09:52 Respiratory Rate 18 01/26/18 09:52 Blood Pressure 118/75 01/26/18 09:52 O2 Sat by Pulse Oximetry (%) Pertinent Admission Physical Exam Findings: WITHDRAWAL SX Laboratory Last Values WBC 5.8 K/mm3 (4.0-10.0) 01/24/18 07:30 RBC 4.45 M/mm3 (4.00-5.60) 01/24/18 07:30 Hgb 12.9 GM/dL (11.7-16.9) 01/24/18 07:30 Hct 39.4 % (35.4-49) 01/24/18 07:30 MCV 88.6 fl (80-96) 01/24/18 07:30 MCH 29.0 pg (25.7-33.7) 01/24/18 07:30 MCHC 32.7 g/dl (32.0-35.9) 01/24/18 07:30 RDW 13.1 % (11.9-15.9) 01/24/18 07:30 Plt Count 219 K/MM3 (134-434) 01/24/18 07:30 MPV 9.1 fl (7.5-11.1) 01/24/18 07:30 Sodium 140 mmol/L (136-145) 01/24/18 07:30 Potassium 4.1 mmol/L (3.5-5.1) 01/24/18 07:30 Chloride 107 mmol/L (98-107) 01/24/18 07:30 Carbon Dioxide 27 mmol/L (21-32) 01/24/18 07:30 Anion Gap 6 (8-16) L 01/24/18 07:30 BUN 12 mg/dL (7-18) 01/24/18 07:30 Creatinine 0.8 mg/dL (0.7-1.3) 01/24/18 07:30 Creat Clearance w eGFR > 60 (>60) 01/24/18 07:30 Random Glucose 86 mg/dL (74-106) 01/24/18 07:30 Calcium 8.7 mg/dL (8.5-10.1) 01/24/18 07:30 Total Bilirubin 1.2 mg/dL (0.2-1.0) H D 01/24/18 07:30 AST 16 U/L (15-37) D 01/24/18 07:30 ALT 20 U/L (12-78) 01/24/18 07:30 Alkaline Phosphatase 97 U/L (45-117) 01/24/18 07:30 Total Protein 6.5 g/dl (6.4-8.2) 01/24/18 07:30 Albumin 3.4 g/dl (3.4-5.0) 01/24/18 07:30 Urine Color Ltyellow 01/23/18 17:00 Urine Appearance Clear 01/23/18 17:00 Urine pH 5.0 (5.0-8.0) 01/23/18 17:00 Ur Specific [place] 1.013 (1.001-1.035) 01/23/18 17:00 Urine Protein Negative (NEGATIVE) 01/23/18 17:00 Urine Glucose (UA) Negative (NEGATIVE) 01/23/18 17:00 Urine Ketones Negative (NEGATIVE) 01/23/18 17:00 Urine Blood Negative (NEGATIVE) 01/23/18 17:00 Urine Nitrite Negative (NEGATIVE) 01/23/18 17:00 Urine Bilirubin Negative (<2.0 mg/dL) 01/23/18 17:00 Urine Urobilinogen Negative mg/dL (0.2-1.0) 01/23/18 17:00 Ur Leukocyte Esterase Negative (NEGATIVE) 01/23/18 17:00 RPR Titer Nonreactive (NONREACTIVE) 01/24/18 07:30 - Treatment Hospital Course: Discharged Condition Good - Medication Discharge Medications: Ambulatory Orders Gabapentin [Neurontin -] 600 mg PO TID 01/23/18 Quetiapine Fumarate [Seroquel] 100 tab PO BID #60 tablet 01/24/18 - Diagnosis (1) Alcohol dependence with uncomplicated withdrawal Status: Acute (2) Opioid dependence with withdrawal Status: Acute (3) Nicotine dependence Status: Acute Qualifiers: Nicotine product type: cigarettes Substance use status: in withdrawal Qualified Code(s): F17.213 - Nicotine dependence, cigarettes, with withdrawal (4) Low back pain Status: Chronic Qualifiers: Chronicity: chronic Back pain laterality: unspecified - AMA Did Patient Leave Against Medical Advice: Yes (AMA)
[2018-01-26] MEDS ORDERED: chlordiazePOXIDE HCL 10 MG CAPSULE PO SCH (17:00)
[2018-01-27] MEDS ORDERED: METHADONE HCL 5 MG TABLET (FOR DETOX USE ONLY) PO SCH (06:00)
[2018-01-27] MEDS ORDERED: METHADONE HCL 10 MG TABLET (FOR DETOX USE ONLY) PO SCH (10:00)
[2018-01-28] MEDS ORDERED: METHADONE HCL 5 MG TABLET (FOR DETOX USE ONLY) PO SCH (06:00)
== END 2018-01-26 10:39 | disposition left against medical advice (07) | DRG 770 ==
LOC: YASAS 11:37 → Y3N 14:16
PROVIDERS: ADMIT Internal Medicine; ATTEND Internal Medicine
PROC: HZ2ZZZZ Detoxification Services for Substance Abuse Treatment (ICD-10-PCS; principal; 2018-01-23)
DX: F11.23 Opioid dependence with withdrawal (principal); F10.230 Alcohol dependence with withdrawal, uncomplicated; F12.10 Cannabis abuse, uncomplicated; F17.213 Nicotine dependence, cigarettes, with withdrawal; F25.9 Schizoaffective disorder, unspecified; F51.05 Insomnia due to other mental disorder; E86.0 Dehydration; R76.11 Nonspecific reaction to tuberculin skin test without active tuberculosis; K08.409 Partial loss of teeth, unspecified cause, unspecified class; Z87.828 Personal history of other (healed) physical injury and trauma
CPT/HCPCS: 36415; 80053; 81003; 85027; 86593; 93005; 93010

== ENCOUNTER 2018-08-27 13:04 | Inpatient (IN) | payer OTHER ==
[2018-08-27 14:16] VITALS: BMI 29.5
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
[2018-08-27] MEDS ORDERED: IBUPROFEN 400 MG TABLET (FP) PO PRN (20:33)
[2018-08-27] MEDS ORDERED: ACETAMINOPHEN 325 MG TABLET (FP) PO PRN (20:33)
[2018-08-27] MEDS ORDERED: P-EPHED 60MG/TRIPROLIDI 2.5MG TABLET PO PRN (20:33)
[2018-08-27] MEDS ORDERED: MAG HYDROX/AL HYDROX/SIMETH 30 ML UNIT-DOSE CUP PO PRN (20:33)
[2018-08-27] MEDS ORDERED: NICOTINE POLACRILEX 2 MG GUM BUC PRN (20:33)
[2018-08-27] MEDS ORDERED: guaiFENesin/D-METHORPHAN HB 10 ML UNIT-DOSE CUPS PO PRN (20:33)
[2018-08-27] MEDS ORDERED: MENTHOL/PHENOL 1 EACH UD MM PRN (20:33)
[2018-08-27] MEDS ORDERED: MAGNESIUM CITRATE 300 ML BOTTLE PO PRN (20:33)
[2018-08-27] MEDS ORDERED: MAGNESIUM HYDROX 2400MG/30ML ORAL SUSPENSION 30 ML CUP PO PRN (20:33)
[2018-08-27] MEDS ORDERED: cloNIDine HCL 0.1 MG TABLET PO PRN (20:36)
[2018-08-27] MEDS ORDERED: MELATONIN 5 MG TABLETS PO PRN (22:00)
[2018-08-27] MEDS ORDERED: METHADONE HCL 10 MG TABLET (FOR DETOX USE ONLY) PO ONE (23:00)
[2018-08-27] MEDS: FLUTICASONE PROP 0.05% 16 GM NASAL SPRAY NS SCH (23:27)
[2018-08-27] MEDS: THIAMINE HCL 100 MG TABLET (FP) PO SCH (23:27)
[2018-08-27] MEDS: traZODone HCL 50 MG TABLET (FP) PO SCH (23:28)
[2018-08-28] MEDS ORDERED: diazePAM 5 MG TABLET PO PRN (09:24)
[2018-08-28] MEDS ORDERED: METHADONE HCL 10 MG TABLET (FOR DETOX USE ONLY) PO ONE (10:00)
[2018-08-28] MEDS: PRENATAL VITAMINS W/ FOLIC ACID TABLET (FP) PO SCH (10:47)
[2018-08-28] MEDS: FLUTICASONE PROP 0.05% 16 GM NASAL SPRAY NS SCH ×2 (10:48→22:34)
[2018-08-28 11:25] LABS: HEMATOCRIT 37.5 % (35.4-49); MCHC 31.8 g/dl (32.0-35.9); MEAN CELL VOLUME 87.9 fl (80-96); MEAN PLT VOLUME 8.6 fl (7.5-11.1); PLATELET COUNT 225 K/MM3 (134-434); RBC 4.27 M/mm3 (4.00-5.60); RDW 12.7 % (11.9-15.9); WHITE BLOOD COUNT 4.6 K/mm3 (4.0-10.0)
[2018-08-28 11:30] LABS: ALBUMIN 3.2 g/dl (3.4-5.0); ALK PHOS 81 U/L (45-117); ANION GAP 5 MMOL/L (8-16); BILIRUBIN,TOTAL 1.1 mg/dL (0.2-1); BLOOD UREA NITROGEN 16 mg/dL (7-18); CALCIUM 8.6 mg/dL (8.5-10.1); CHLORIDE 105 mmol/L (98-107); CO2 28 mmol/L (21-32); CREATININE 0.8 mg/dL (0.55-1.3); GLUCOSE,RANDOM 91 mg/dL (74-106); POTASSIUM 4.4 mmol/L (3.5-5.1); SGOT/AST 19 U/L (15-37); SGPT/ALT 22 U/L (13-61); SODIUM 138 mmol/L (136-145); TOT PROT 6.2 g/dl (6.4-8.2)
[2018-08-28] MEDS ORDERED: ONDANSETRON *ODT* 4 MG TABLET SL PRN (13:01)
--- NOTE | 2018-08-28 13:02 | PN ---
[facility] CIWA - CIWA Score Nausea/Vomitin-No Nausea/No Vomiting Muscle Tremors: 4-Moderate,w/Arms Extend Anxiety: 4-Mod. Anxious/Guarded Agitation: 4-Moderately Restless Paroxysmal Sweats: 1-Minimal Palms Moist Orientation: 0-Oriented Tacttile Disturbances: 0-None Auditory Disturbances: 0-None Visual Disturbances: 0-None Headache: 0-None Present CIWA-Ar Total Score: 13 S COWS - Scale Resting Pulse: 0= [place] 80 or Below Sweatin= Chills/Flushing Restless Observation: 0= Sits Still Pupil Size: 0= Normal to Room Light Bone or Joint Aches: 1= Mild Discomfort Runny Nose/ Eye Tearin= None GI Upset > 30mins: 2= Nausea/Diarrhea (NAUSEA) Tremor Observation of Outstretched Hands: 1= Tremor [place], Not Seen Yawning Observation: 2= >3x During Session Anxiety or Irritability: 2=Irritable/Anxious Goose Flesh Skin: 0=Smooth Skin COWS Score: 9 S Progress Note (SOAP) Subjective: PT C/O ANXIETY,IRRITABILITY,RESTLESS, YAWNING,NAUSEA Objective: 08/28/18 13:00 Vital Signs 08/28/18 08/28/18 06:23 11:06 Temperature 97.7 F 98.6 F Pulse Rate 60 75 Respiratory 18 20 Rate Blood Pressure 143/76 135/93 Laboratory Tests 08/28/18 08/28/18 08/28/18 07:30 07:30 07:30 WBC 4.6 RBC 4.27 Hgb 12.0 Hct 37.5 MCV 87.9 MCH 28.0 MCHC 31.8 L RDW 12.7 Plt Count 225 MPV 8.6 Sodium 138 Potassium 4.4 Chloride 105 Carbon Dioxide 28 Anion Gap 5 L BUN 16 Creatinine 0.8 Creat Clearance w eGFR > 60 Random Glucose 91 Calcium 8.6 Total Bilirubin 1.1 H AST 19 ALT 22 Alkaline Phosphatase 81 Total Protein 6.2 L Albumin 3.2 L RPR Titer Nonreactive HIV 1&2 Antibody Screen HIV P24 Antigen 08/28/18 07:30 WBC RBC Hgb Hct MCV MCH MCHC RDW Plt Count MPV Sodium Potassium Chloride Carbon Dioxide Anion Gap BUN Creatinine Creat Clearance w eGFR Random Glucose Calcium Total Bilirubin AST ALT Alkaline Phosphatase Total Protein Albumin RPR Titer HIV 1&2 Antibody Screen Negative HIV P24 Antigen Negative UA PENDING Assessment: 08/28/18 13:01 WITHDRAWAL SX Plan: CONTINUE DETOX ZOFRAN DIRECTED FOR N/V
[2018-08-28] MEDS: traZODone HCL 50 MG TABLET (FP) PO SCH (22:33)
[2018-08-28] MEDS: THIAMINE HCL 100 MG TABLET (FP) PO SCH (22:33)
[2018-08-29 06:44] VITALS: BP 129/75; PULSE 55; TEMP 98.9
[2018-08-29] MEDS ORDERED: METHADONE HCL 5 MG TABLET (FOR DETOX USE ONLY) PO ONE (10:00)
[2018-08-29] MEDS: PRENATAL VITAMINS W/ FOLIC ACID TABLET (FP) PO SCH (10:23)
[2018-08-29] MEDS: FLUTICASONE PROP 0.05% 16 GM NASAL SPRAY NS SCH (10:23)
--- NOTE | 2018-08-29 17:55 | DS ---
[facility] Detox Discharge Summary Admission Date: 08/27/18 Discharge Date: 08/29/18 - History Present History: Alcohol Dependence, Opioid Dependence Additional Comments: Patient left AMA despite encouragement from staff to complete detox. As per patient, he has things to do. Patient denied any withdrawal symptoms. Patient instructed to call 911 if feeling sick or any withdrawal sxs and to see his PCP within 3 days. Patient is A, A, Ox 3, in nad, ambulatory and verbalized understanding. Pertinent Past History: HTN Nicotine dependence [place] - Physical Exam Results Vital Signs: Vital Signs Temperature 98.9 F 08/29/18 06:43 Pulse Rate 55 L 08/29/18 06:43 Respiratory Rate 16 08/29/18 06:43 Blood Pressure 129/75 08/29/18 06:43 O2 Sat by Pulse Oximetry (%) Pertinent Admission Physical Exam Findings: Withdrawal sxs Laboratory Tests 08/28/18 08/28/18 08/28/18 07:30 07:30 07:30 WBC 4.6 RBC 4.27 Hgb 12.0 Hct 37.5 MCV 87.9 MCH 28.0 MCHC 31.8 L RDW 12.7 Plt Count 225 MPV 8.6 Sodium 138 Potassium 4.4 Chloride 105 Carbon Dioxide 28 Anion Gap 5 L BUN 16 Creatinine 0.8 Creat Clearance w eGFR > 60 Random Glucose 91 Calcium 8.6 Total Bilirubin 1.1 H AST 19 ALT 22 Alkaline Phosphatase 81 Total Protein 6.2 L Albumin 3.2 L RPR Titer Nonreactive HIV 1&2 Antibody Screen HIV P24 Antigen 08/28/18 07:30 WBC RBC Hgb Hct MCV MCH MCHC RDW Plt Count MPV Sodium Potassium Chloride Carbon Dioxide Anion Gap BUN Creatinine Creat Clearance w eGFR Random Glucose Calcium Total Bilirubin AST ALT Alkaline Phosphatase Total Protein Albumin RPR Titer HIV 1&2 Antibody Screen Negative HIV P24 Antigen Negative Labs reviewed - Medication Discharge Medications: Ambulatory Orders Gabapentin [Neurontin -] 600 mg PO TID 01/23/18 Quetiapine Fumarate [Seroquel] 100 tab PO BID #60 tablet 01/24/18 - AMA Did Patient Leave Against Medical Advice: Yes (Instructed to call 911 if feeling sick or withdrawal sxs)
[2018-08-30] MEDS ORDERED: METHADONE HCL 10 MG TABLET (FOR DETOX USE ONLY) PO ONE (10:00)
[2018-08-31] MEDS ORDERED: METHADONE HCL 5 MG TABLET (FOR DETOX USE ONLY) PO ONE (06:00)
== END 2018-08-29 09:17 | disposition left against medical advice (07) | DRG 770 ==
LOC: YASAS 13:04 → Y3N 22:24
PROC: HZ2ZZZZ Detoxification Services for Substance Abuse Treatment (ICD-10-PCS; principal; 2018-08-27)
DX: F11.23 Opioid dependence with withdrawal (principal); F10.230 Alcohol dependence with withdrawal, uncomplicated; F17.213 Nicotine dependence, cigarettes, with withdrawal; F31.9 Bipolar disorder, unspecified; F41.9 Anxiety disorder, unspecified; I25.2 Old myocardial infarction; I15.9 Secondary hypertension, unspecified; M54.5 Low back pain; G89.29 Other chronic pain
CPT/HCPCS: 36415; 80053; 85027; 86593; 87389

== ENCOUNTER 2019-01-21 10:08 | Inpatient (IN) | payer OTHER ==
[2019-01-21 11:08] VITALS: BMI 29.8
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
[2019-01-21] MEDS ORDERED: diazePAM 5 MG TABLET PO PRN (11:31)
[2019-01-21] MEDS ORDERED: MAGNESIUM CITRATE 300 ML BOTTLE PO PRN (11:31)
[2019-01-21] MEDS ORDERED: IBUPROFEN 400 MG TABLET (FP) PO PRN (11:31)
[2019-01-21] MEDS ORDERED: MAG HYDROX/AL HYDROX/SIMETH 30 ML UNIT-DOSE CUP PO PRN (11:31)
[2019-01-21] MEDS ORDERED: MENTHOL/PHENOL 1 EACH UD MM PRN (11:31)
[2019-01-21] MEDS ORDERED: MAGNESIUM HYDROX 2400MG/30ML ORAL SUSPENSION 30 ML CUP PO PRN (11:31)
[2019-01-21] MEDS ORDERED: ACETAMINOPHEN 325 MG TABLET (FP) PO PRN ×2 (11:31)
[2019-01-21] MEDS ORDERED: MELATONIN 5 MG TABLETS PO PRN (11:31)
[2019-01-21] MEDS ORDERED: NICOTINE POLACRILEX 2 MG GUM BUC PRN (11:31)
[2019-01-21] MEDS ORDERED: BISMUTH SUBSALICYLATE 262 MG/15 ML BTL PO PRN (11:31)
[2019-01-21 15:18] LABS: HEMATOCRIT 38.9 % (35.4-49); HEMOGLOBIN 12.7 GM/dL (11.7-16.9); MCHC 32.5 g/dl (32.0-35.9); MEAN CELL VOLUME 89.2 fl (80-96); PLATELET COUNT 191 K/MM3 (134-434); RBC 4.36 M/mm3 (4.00-5.60); RDW 13.4 % (11.9-15.9); WHITE BLOOD COUNT 6.9 K/mm3 (4.0-10.0)
[2019-01-21 15:33] LABS: ALBUMIN 3.6 g/dl (3.4-5.0); ALK PHOS 111 U/L (45-117); ANION GAP 6 MMOL/L (8-16); BILIRUBIN,TOTAL 0.6 mg/dL (0.2-1); BLOOD UREA NITROGEN 15 mg/dL (7-18); CALCIUM 9.1 mg/dL (8.5-10.1); CHLORIDE 105 mmol/L (98-107); CO2 31 mmol/L (21-32); GLUCOSE,RANDOM 94 mg/dL (74-106); POTASSIUM 4.8 mmol/L (3.5-5.1); SGOT/AST 17 U/L (15-37); SGPT/ALT 26 U/L (13-61); SODIUM 141 mmol/L (136-145); TOT PROT 6.8 g/dl (6.4-8.2)
[2019-01-21] MEDS: diazePAM 5 MG TABLET PO SCH ×2 (15:46→22:49)
[2019-01-21] MEDS ORDERED: THIAMINE HCL 100 MG TABLET (FP) PO SCH (22:00)
[2019-01-21] MEDS ORDERED: METHADONE HCL 10 MG TABLET (FOR DETOX USE ONLY) PO ONE (23:00)
[2019-01-22] MEDS: diazePAM 5 MG TABLET PO SCH (07:44)
[2019-01-22 09:01] VITALS: BP 123/72; PULSE 60; TEMP 98.1
[2019-01-22] MEDS ORDERED: PRENATAL VITAMINS W/ FOLIC ACID TABLET (FP) PO SCH (10:00)
[2019-01-22] MEDS ORDERED: METHADONE HCL 5 MG TABLET (FOR DETOX USE ONLY) PO ONE (10:00)
[2019-01-22] MEDS ORDERED: diazePAM 5 MG TABLET PO SCH (14:00)
--- NOTE | 2019-01-22 16:18 | PN ---
S CIWA - CIWA Score Nausea/Vomitin-No Nausea/No Vomiting Muscle Tremors: 2 Anxiety: 4-Mod. Anxious/Guarded Agitation: 3 Paroxysmal Sweats: 2 Orientation: 0-Oriented Tacttile Disturbances: 3-Moderate Itch/Numb/Burn Auditory Disturbances: 0-None Visual Disturbances: 0-None Headache: 0-None Present CIWA-Ar Total Score: 14 BHS COWS - Scale Resting Pulse: 0= [place] 80 or Below Sweatin= Chills/Flushing Restless Observation: 1= Difficult to Sit Still Pupil Size: 0= Normal to Room Light Bone or Joint Aches: 2= Severe Diffuse Aches Runny Nose/ Eye Tearin= None GI Upset > 30mins: 0= None Tremor Observation of Outstretched Hands: 1= Tremor [place], Not Seen Yawning Observation: 1= 1-2x During Session Anxiety or Irritability: 2=Irritable/Anxious Goose Flesh Skin: 3=[place] COWS Score: 11 S Progress Note (SOAP) Subjective: Body Aches, Tremors, Anxious. Objective: PATIENT A & O X 3, OBSERVED AMBULATING ON UNIT. IN NO ACUTE DISTRESS. 01/22/19 16:17 Vital Signs Temperature 98.1 F 01/22/19 09:00 Pulse Rate 60 01/22/19 09:00 Respiratory Rate 18 01/22/19 09:00 Blood Pressure 123/72 01/22/19 09:00 O2 Sat by Pulse Oximetry (%) Laboratory Tests 01/21/19 01/21/19 01/21/19 11:30 11:30 11:30 WBC 6.9 RBC 4.36 Hgb 12.7 Hct 38.9 MCV 89.2 MCH 29.0 MCHC 32.5 RDW 13.4 Plt Count 191 MPV 9.0 Sodium 141 Potassium 4.8 Chloride 105 Carbon Dioxide 31 Anion Gap 6 L BUN 15 Creatinine 1.0 Creat Clearance w eGFR 79.42 Random Glucose 94 Calcium 9.1 Total Bilirubin 0.6 AST 17 ALT 26 Alkaline Phosphatase 111 Total Protein 6.8 Albumin 3.6 RPR Titer HIV 1&2 Antibody Screen Negative HIV P24 Antigen Negative 01/21/19 11:30 WBC RBC Hgb Hct MCV MCH MCHC RDW Plt Count MPV Sodium Potassium Chloride Carbon Dioxide Anion Gap BUN Creatinine Creat Clearance w eGFR Random Glucose Calcium Total Bilirubin AST ALT Alkaline Phosphatase Total Protein Albumin RPR Titer Nonreactive HIV 1&2 Antibody Screen HIV P24 Antigen LABS NOTED. Assessment: 01/22/19 16:18 WITHDRAWAL SYMPTOMS. Plan: CONTINUE DETOX.
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
[2019-01-23] MEDS ORDERED: diazePAM 5 MG TABLET PO ONE (06:00)
[2019-01-23] MEDS ORDERED: METHADONE HCL 10 MG TABLET (FOR DETOX USE ONLY) PO ONE (10:00)
[2019-01-24] MEDS ORDERED: METHADONE HCL 5 MG TABLET (FOR DETOX USE ONLY) PO ONE (06:00)
== END 2019-01-22 11:10 | disposition left against medical advice (07) | DRG 770 ==
LOC: YASAS 10:08 → Y3N 11:52
PROVIDERS: ADMIT Surgery; ATTEND Surgery
PROC: HZ2ZZZZ Detoxification Services for Substance Abuse Treatment (ICD-10-PCS; principal; 2019-01-21)
DX: F10.230 Alcohol dependence with withdrawal, uncomplicated (principal); F11.23 Opioid dependence with withdrawal; F17.213 Nicotine dependence, cigarettes, with withdrawal; F32.9 Major depressive disorder, single episode, unspecified; G47.00 Insomnia, unspecified
CPT/HCPCS: 36415; 71046-TC-FY; 80053; 85027; 86593; 87389

== ENCOUNTER 2019-08-20 12:55 | Inpatient (IN) | payer OTHER ==
[2019-08-20 14:59] VITALS: BMI 31.1
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
[2019-08-20] MEDS ORDERED: MAGNESIUM CITRATE 300 ML BOTTLE PO PRN (18:23)
[2019-08-20] MEDS ORDERED: BISMUTH SUBSALICYLATE 524 MG/30 ML UD PO PRN (18:23)
[2019-08-20] MEDS ORDERED: MAG HYDROX/AL HYDROX/SIMETH 30 ML UNIT-DOSE CUP PO PRN (18:23)
[2019-08-20] MEDS ORDERED: METHOCARBAMOL 500 MG TABLET PO PRN (18:23)
[2019-08-20] MEDS ORDERED: ACETAMINOPHEN 325 MG TABLET (FP) PO PRN ×2 (18:23)
[2019-08-20] MEDS ORDERED: MENTHOL/PHENOL 1 EACH UD MM PRN (18:23)
[2019-08-20] MEDS ORDERED: IBUPROFEN 400 MG TABLET (FP) PO PRN (18:23)
[2019-08-20] MEDS ORDERED: MAGNESIUM HYDROX 2400MG/30ML ORAL SUSPENSION 30 ML CUP PO PRN (18:23)
[2019-08-20] MEDS ORDERED: NICOTINE POLACRILEX 2 MG GUM BUC PRN (18:23)
[2019-08-20] MEDS ORDERED: METHADONE HCL 10 MG TABLET (FOR DETOX USE ONLY) PO ONE (18:23)
[2019-08-20] MEDS ORDERED: guaiFENesin 200 MG/10 ML 10 ML UNIT-DOSE CUPS PO PRN (18:28)
[2019-08-20 21:48] VITALS: PULSE 50
[2019-08-20] MEDS ORDERED: THIAMINE HCL 100 MG TABLET (FP) PO SCH (22:00)
[2019-08-20] MEDS ORDERED: TOLNAFTATE 1% CREAM 15 GM TUBE TP SCH (22:00)
[2019-08-20] MEDS ORDERED: METHADONE HCL 10 MG TABLET ONE (22:05)
[2019-08-20] MEDS ORDERED: METHADONE HCL 5 MG TABLET ONE (22:05)
[2019-08-20] MEDS: P-EPHED 60MG/TRIPROLIDI 2.5MG TABLET PO SCH (22:56)
[2019-08-20] MEDS ORDERED: METHADONE 10 MG, METHADONE 5 MG PO ONE (23:00)
[2019-08-20] MEDS ORDERED: METHADONE HCL 10 MG TABLET PO ONE (23:00)
[2019-08-21] MEDS: P-EPHED 60MG/TRIPROLIDI 2.5MG TABLET PO SCH (06:54)
[2019-08-21] MEDS ORDERED: METHADONE HCL 10 MG TABLET (FOR DETOX USE ONLY) ONE (09:15)
[2019-08-21] MEDS ORDERED: METHADONE HCL 5 MG TABLET (FOR DETOX USE ONLY) ONE (09:15)
[2019-08-21 09:23] LABS: HEMATOCRIT 35.5 % (35.4-49); HEMOGLOBIN 12.1 GM/dL (11.7-16.9); MCH 30.1 pg (25.7-33.7); MCHC 34.2 g/dl (32.0-35.9); MEAN CELL VOLUME 88.1 fl (80-96); PLATELET COUNT 207 K/MM3 (134-434); RBC 4.03 M/mm3 (4.00-5.60); RDW 12.9 % (11.9-15.9); WHITE BLOOD COUNT 4.3 K/mm3 (4.0-10.0)
[2019-08-21 09:37] LABS: ALBUMIN 3.3 g/dl (3.4-5.0); BILIRUBIN,TOTAL 1.5 mg/dL (0.2-1); BLOOD UREA NITROGEN 11.2 mg/dL (7-18); CALCIUM 8.8 mg/dL (8.5-10.1); CREATININE 0.8 mg/dL (0.55-1.3); TOT PROT 6.2 g/dl (6.4-8.2)
[2019-08-21 09:41] VITALS: BP 141/74; TEMP 98.2
[2019-08-21] MEDS ORDERED: METHADONE (DETOX) 20 MG, METHADONE (DETOX) 5 MG PO ONE (10:00)
[2019-08-21] MEDS ORDERED: PRENATAL VITAMINS W/ FOLIC ACID TABLET (FP) PO SCH (10:00)
--- NOTE | 2019-08-21 15:39 | DS ---
[facility] Detox Discharge Summary Admission Date: 08/20/19 Discharge Date: 08/21/19 - History Present History: Alcohol Dependence, Cannabis Dependence, Opioid Dependence Additional Comments: Patient demanded to leave AMA despite encouragement to complete detox. Patient stated, "I have court tomorrow." Patient instructed to call 911 if sick or withdrawal sxs and to see his PCP within 3 days in which he verbalized understanding. Pertinent Past History: History of Positive PPD - Physical Exam Results Vital Signs: Vital Signs Temperature 98.2 F 08/21/19 09:40 Pulse Rate 50 L 08/21/19 09:40 Respiratory Rate 20 08/21/19 09:40 Blood Pressure 141/74 08/21/19 09:40 O2 Sat by Pulse Oximetry (%) Elevated b/p: denies htn, most likely due to withdrawal, follow up with PCP for monitoring/management Pertinent Admission Physical Exam Findings: Withdrawal sxs Laboratory Tests 08/21/19 08/21/19 08/21/19 07:50 07:50 07:50 WBC 4.3 RBC 4.03 Hgb 12.1 Hct 35.5 MCV 88.1 MCH 30.1 MCHC 34.2 RDW 12.9 Plt Count 207 MPV 9.0 Sodium 139 Potassium 4.0 Chloride 107 Carbon Dioxide 28 Anion Gap 4 L BUN 11.2 Creatinine 0.8 Est GFR (CKD-EPI)AfAm 120.72 Est GFR (CKD-EPI)NonAf 104.16 Random Glucose 94 Calcium 8.8 Total Bilirubin 1.5 H AST 19 ALT 22 Alkaline Phosphatase 95 Total Protein 6.2 L Albumin 3.3 L RPR Titer Nonreactive Labs reviewed: total bilirubin 1.5 (high, most likely from alcoholism), total protein and albumin low (encourage increased protein in diet): follow up with PCP within 3 days - Medication Discharge Medications: Ambulatory Orders Gabapentin 300 mg PO TID 01/21/19 - Diagnosis (1) Cannabis dependence Status: Chronic (2) Total bilirubin, elevated Status: Acute (3) Hypoalbuminemia Status: Acute (4) Alcohol dependence with uncomplicated withdrawal Status: Acute (5) Opioid dependence with withdrawal Status: Acute (6) Nicotine dependence Status: Chronic Qualifiers: Nicotine product type: cigarettes Substance use status: in withdrawal Qualified Code(s): F17.213 - Nicotine dependence, cigarettes, with withdrawal (7) PPD positive, treated Status: Chronic (8) Elevated blood pressure reading without diagnosis of hypertension Status: Acute - AMA Did Patient Leave Against Medical Advice: Yes (Instructed to call [phone] BIRDIE if sick or withdrawal sxs)
[2019-08-22] MEDS ORDERED: METHADONE HCL 10 MG TABLET (FOR DETOX USE ONLY) PO ONE (10:00)
[2019-08-23] MEDS ORDERED: METHADONE (DETOX) 10 MG, METHADONE (DETOX) 5 MG PO ONE (10:00)
[2019-08-24] MEDS ORDERED: METHADONE HCL 10 MG TABLET (FOR DETOX USE ONLY) PO ONE (10:00)
[2019-08-25] MEDS ORDERED: METHADONE HCL 5 MG TABLET (FOR DETOX USE ONLY) PO ONE (06:00)
== END 2019-08-21 10:18 | disposition left against medical advice (07) | DRG 770 ==
LOC: YASAS 12:55 → Y6N 18:36
PROVIDERS: ADMIT Allergy & Immunology; ATTEND Allergy & Immunology
PROC: HZ2ZZZZ Detoxification Services for Substance Abuse Treatment (ICD-10-PCS; principal; 2019-08-20)
DX: F11.23 Opioid dependence with withdrawal (principal); F10.230 Alcohol dependence with withdrawal, uncomplicated; F12.20 Cannabis dependence, uncomplicated; F17.213 Nicotine dependence, cigarettes, with withdrawal; E80.6 Other disorders of bilirubin metabolism; R77.0 Abnormality of albumin; R03.0 Elevated blood-pressure reading, without diagnosis of hypertension; R00.1 Bradycardia, unspecified; M54.5 Low back pain; M79.673 Pain in unspecified foot; G89.29 Other chronic pain; B35.3 Tinea pedis; J34.89 Other specified disorders of nose and nasal sinuses; Z91.013 Allergy to seafood; Z91.018 Allergy to other foods
CPT/HCPCS: 36415; 80053; 85027; 86593

== ENCOUNTER 2023-12-04 19:50 | Inpatient (IN) | payer OTHER ==
[2023-12-04 20:22] VITALS: BMI 29.8
[2023-12-04] MEDS ORDERED: NICOTINE POLACRILEX 2 MG GUM BUC PRN (22:02)
[2023-12-04] MEDS ORDERED: AMMONIUM LACTATE 12% LOTION 225 GM BOTTLE TP PRN (22:02)
[2023-12-04] MEDS ORDERED: ACETAMINOPHEN 325 MG TABLET (FP) PO PRN (22:02)
[2023-12-04] MEDS ORDERED: BENZONATATE 200 MG CAPSULE PO PRN (22:02)
[2023-12-04] MEDS ORDERED: BENZOCAINE/MENTHOL (CHLORASEPTIC ) LOZENGE MM PRN (22:02)
[2023-12-04] MEDS ORDERED: NALOXONE HCL (KLOXXADO) 8 MG SPRAY NS PRN (22:02)
[2023-12-04] MEDS ORDERED: POLYETHYLENE GLYCOL (HEALTHYLAX) 3350 17 GM PACKET PO PRN (22:02)
[2023-12-04] MEDS ORDERED: IBUPROFEN 600 MG TABLET (FP) PO PRN (22:02)
[2023-12-04] MEDS ORDERED: DOCUSATE SODIUM 100 MG CAPSULE (FP) PO PRN (22:02)
[2023-12-04] MEDS ORDERED: MAG HYDROX/AL HYDROX/SIMETH 30 ML UNIT-DOSE CUP PO PRN (22:02)
[2023-12-04] MEDS ORDERED: P-EPHED 60MG/TRIPROLIDI 2.5MG TABLET PO PRN (22:02)
[2023-12-04] MEDS ORDERED: guaiFENesin 600 MG TABLET.ER (FP) PO PRN (22:02)
[2023-12-04] MEDS ORDERED: IBUPROFEN 400 MG TABLET (FP) PO PRN (22:02)
[2023-12-04] MEDS ORDERED: NALOXONE HCL 0.4 MG/ML VIAL IM PRN (22:02)
[2023-12-05] MEDS: MELATONIN 5 MG TABLETS PO SCH (04:48)
[2023-12-05] MEDS: AZITHROMYCIN 250 MG TABLET PO SCH (10:56)
[2023-12-05] MEDS: PRENATAL VITAMINS W/ FOLIC ACID TABLET (FP) PO SCH (10:56)
[2023-12-05] MEDS: methaDONE 40 MG, methaDONE 10 MG PO SCH (10:56)
[2023-12-05 11:59] LABS: POTASSIUM 3.7 mmol/L (3.5-5.1)
[2023-12-05 12:02] LABS: HEMATOCRIT 31.2 % (35.4-49); HEMOGLOBIN 10.6 GM/dL (11.7-16.9); MCH 29.4 pg (25.7-33.7); MCHC 33.9 g/dl (32.0-35.9); MEAN CELL VOLUME 86.8 fl (80-96); MEAN PLT VOLUME 8.3 fl (7.5-11.1); PLATELET COUNT 259 10^3/uL (134-434); RDW 12.9 % (11.9-15.9)
[2023-12-05 12:14] LABS: BLOOD UREA NITROGEN 8.9 mg/dL (7-18)
[2023-12-05 12:18] LABS: ALBUMIN 2.6 g/dl (3.4-5.0); CALCIUM 8.9 mg/dL (8.5-10.1)
[2023-12-05 12:19] LABS: BILIRUBIN,TOTAL 1.2 mg/dL (0.2-1); TOT PROT 5.9 g/dl (6.4-8.2)
[2023-12-05 12:20] LABS: SYPHILIS W/ RPR CONF NON-REACTIVE (NONREACTIVE)
[2023-12-05 12:22] LABS: CREATININE 0.6 mg/dL (0.55-1.3)
[2023-12-05] MEDS: TUBERCULIN PPD 5 TU/0.1ML SYRINGE (IN PATIENT USE ONLY) ID ONE (14:30)
[2023-12-05] MEDS: ONDANSETRON *ODT* 4 MG TABLET SL ONE (18:28)
[2023-12-05] MEDS: THIAMINE HCL 100 MG TABLET (FP) PO SCH (22:20)
[2023-12-05] MEDS: QUEtiapine FUMARATE 50 MG TABLET PO SCH (22:20)
[2023-12-07] MEDS ORDERED: methaDONE HCL 10 MG TABLET PO SCH (08:15)
[2023-12-07] MEDS: methaDONE 40 MG, methaDONE 10 MG PO ONE (08:22)
[2023-12-07 16:55] LABS: PH,URINE 8.5 (5.0-8.0); URINE APPEARANCE CLEAR; URINE BILIRUBIN NEGATIVE (NEGATIVE); URINE COLOR YELLOW; URINE GLUCOSE (UA) NEGATIVE (NEGATIVE); URINE KETONE NEGATIVE (NEGATIVE); URINE LEUK ESTERASE NEGATIVE (NEGATIVE); URINE NITRITE NEGATIVE (NEGATIVE); URINE PROTEIN NEGATIVE (NEGATIVE)
[2023-12-08] MEDS: methaDONE 40 MG, methaDONE 10 MG PO SCH (06:48)
[2023-12-09] MEDS: methaDONE 40 MG, methaDONE 20 MG PO SCH (05:54)
[2023-12-09] MEDS ORDERED: methaDONE HCL 40 MG DISPERSABLE TABLET PO SCH (06:00)
[2023-12-09] MEDS: AZITHROMYCIN 250 MG TABLET PO ONE (12:57)
[2023-12-09] MEDS: CEFPODOXIME PROXETIL 100 MG TABLET PO SCH (21:20)
[2023-12-10] MEDS: AZITHROMYCIN 250 MG TABLET PO SCH (10:02)
[2023-12-16] MEDS ORDERED: methaDONE HCL 40 MG DISPERSABLE TABLET PO SCH ×2 (06:00)
[2023-12-16] MEDS: methaDONE 40 MG, methaDONE 20 MG PO SCH (06:14)
[2023-12-18] MEDS ORDERED: OXYMETAZOLINE 0.05% NASAL SOLUTION 15 ML BOTTLE NS PRN (12:19)
[2023-12-18] MEDS ORDERED: amLODIPine BESYLATE 10 MG TABLET (FP) PO SCH (12:29)
[2023-12-18] MEDS: BACITRACIN 0.9 GM PACKET TP SCH (12:49)
[2023-12-18] MEDS: amLODIPine BESYLATE 10 MG TABLET (FP) PO ONE (12:50)
[2023-12-18] MEDS ORDERED: BENZOCAINE 20 % GEL TUBE MM PRN (16:08)
[2023-12-18] MEDS: MELATONIN 5 MG TABLETS PO SCH (21:53)
[2023-12-19] MEDS ORDERED: amLODIPine BESYLATE 10 MG TABLET (FP) PO SCH (10:00)
[2023-12-19] MEDS ORDERED: amLODIPine BESYLATE 5 MG TABLET (FP) PO SCH (10:19)
[2023-12-19] MEDS: amLODIPine BESYLATE 2.5 MG TABLET (FP) PO SCH (10:35)
[2023-12-19] MEDS: amLODIPine BESYLATE 5 MG TABLET (FP) PO SCH (10:36)
[2023-12-23] MEDS: methaDONE 40 MG, methaDONE 20 MG PO SCH (06:49)
[2023-12-23 07:09] VITALS: RESP 18
[2023-12-24] MEDS: amLODIPine BESYLATE 2.5 MG TABLET (FP) PO SCH (10:08)
[2023-12-25] MEDS: GABAPENTIN 300 MG CAPSULE PO SCH (21:31)
[2023-12-25] MEDS ORDERED: GABAPENTIN 300 MG CAPSULE PO SCH (22:00)
[2023-12-26] MEDS: amLODIPine BESYLATE 5 MG TABLET (FP) PO SCH (09:34)
[2023-12-26 13:18] LABS: HEMATOCRIT 37.8 % (35.4-49); HEMOGLOBIN 12.3 GM/dL (11.7-16.9); MCH 28.5 pg (25.7-33.7); MCHC 32.6 g/dl (32.0-35.9); MEAN CELL VOLUME 87.3 fl (80-96); MEAN PLT VOLUME 8.7 fl (7.5-11.1); PLATELET COUNT 267 10^3/uL (134-434); RBC 4.33 M/mm3 (4.00-5.60); RDW 13.7 % (11.9-15.9); WHITE BLOOD COUNT 5.6 K/mm3 (4.0-10.0)
[2023-12-28] MEDS: MAGNESIUM HYDROX 2400MG/30ML ORAL SUSPENSION 30 ML CUP PO PRN (18:58)
[2023-12-28] MEDS: METHOCARBAMOL 500 MG TABLET PO ONE ×2 (18:58→21:40)
[2023-12-29] MEDS: amLODIPine BESYLATE 2.5 MG TABLET (FP) PO SCH (14:52)
[2023-12-29] MEDS: METHOCARBAMOL 500 MG TABLET PO PRN (19:07)
[2023-12-30] MEDS ORDERED: methaDONE HCL 10 MG TABLET PO SCH (06:45)
[2023-12-30] MEDS: methaDONE 40 MG, methaDONE 20 MG PO SCH (06:55)
[2023-12-30] MEDS: amLODIPine BESYLATE 2.5 MG TABLET (FP) PO SCH (09:55)
[2024-01-01 07:21] VITALS: TEMP 96.5
[2024-01-01 10:59] VITALS: BP 146/73; PULSE 79
== END 2024-01-01 10:00 | disposition home or self-care (01) | DRG 772 ==
LOC: YASAS 19:50 → Y3NR 12-05 01:37 → Y5N 12-05 12:36
PROVIDERS: ADMIT Allergy & Immunology; ATTEND Psychiatry & Neurology Pain Medicine
PROC: HZ42ZZZ Group Counseling for Substance Abuse Treatment, Cognitive-Behavioral (ICD-10-PCS; principal; 2023-12-05)
DX: F10.20 Alcohol dependence, uncomplicated (principal); F11.20 Opioid dependence, uncomplicated; F12.20 Cannabis dependence, uncomplicated; F17.210 Nicotine dependence, cigarettes, uncomplicated; G47.00 Insomnia, unspecified; I10 Essential (primary) hypertension; K08.89 Other specified disorders of teeth and supporting structures; R09.81 Nasal congestion; R04.2 Hemoptysis; R51.9 Headache, unspecified; Z87.01 Personal history of pneumonia (recurrent); Z91.81 History of falling; Z88.0 Allergy status to penicillin; Z91.018 Allergy to other foods
CPT/HCPCS: 0241U-QW; 36415; 71045-TC-FY; 80053; 80305; 81003; 84153; 85027; 86780; 86803; 87635; 93005; 93010; Q0162